=== PATIENT | male | born 1960 | race Caucasian/White ===

== ENCOUNTER 2017-01-26 23:00 | Observation (INO) | payer BC ==
[~2017-01-26] VITALS: Ht 177.8 cm; Wt 104.1 kg
[2017-01-26] MEDS ORDERED: LISINOPRIL2.5 MG PO (23:29)
[2017-01-26] MEDS ORDERED: METFORMIN HCL500 MG PO (23:29)
[2017-01-26] MEDS ORDERED: DIABETA5 MG PO (23:30)
[2017-01-26 23:41] LABS: CARBON DIOXIDE (BICARBONATE) 30.2 MEQ/L (20-31)
[2017-01-26 23:44] LABS: EOSINOPHIL (%) 0.5 % (0-5); EOSINOPHIL COUNT 0.1 K/uL (0-0.3); IMMATURE GRANULOCYTE (%) 0.3 % (0.0-0.7); LYMPHOCYTE COUNT 0.6 K/uL (1.0-2.8); MCH 27.3 PG (29.0-34.0); MCV 82.5 FL (86-99); MEAN PLAT.VOLUME 9.8 uM^3 (9.0-12.4); MONOCYTE (%) 6.4 % (3-12); MONOCYTE COUNT 0.7 K/uL (0-0.8); NEUTROPHIL (%) 86.8 % (45-76); PLATELET COUNT 150 K/uL (156-360); RBC DIS.WIDTH-CV 12.3 % (11.8-14.6); RBC DIS.WIDTH-SD 37.2 % (39-53); RED BLOOD COUNT 5.21 M/uL (4.00-5.50); WHITE BLOOD COUNT 10.3 K/uL (4.1-10.2)
[2017-01-26 23:48] LABS: INTER. NORMALIZED RATIO 1.1; PROTHROMBIN TIME 11.9 SEC (10.2-12.9)
[2017-01-26 23:49] LABS: CHLORIDE 103 mEq/L (99-109); POTASSIUM 4.1 mEq/L (3.7-5.4); SODIUM 140 mEq/L (136-147)
[2017-01-26 23:51] LABS: GLUCOSE 291 mg/dL (70-99); PTT 28.5 SEC (25-37)
[2017-01-26 23:53] LABS: ANION GAP 14 MEQ/L (2-14); TOTAL BILIRUBIN 2.2 mg/dL (0.0-1.0)
[2017-01-26 23:55] LABS: ALKALINE PHOSPHATASE 111 IU/L (3-129); GFR ESTIMATE (CALCULATED) > 59 mL/min/
[2017-01-26 23:56] LABS: UREA NITROGEN (BUN) 20 mg/dL (9-23)
[2017-01-26 23:57] LABS: DIRECT BILIRUBIN 1.4 mg/dL (0.0-0.3)
[2017-01-26 23:58] LABS: LIPASE 60 U/L (1.0-51.0)
[2017-01-27 00:01] LABS: TROP-I INTERPRETATION NEGATIVE; TROPONIN-I < 0.01 ng/mL (0.0-0.30)
[2017-01-27 06:47] LABS: POINT-OF-CARE METER ID UU13113702
[2017-01-27] MEDS ORDERED: CINNAMON500 MG PO (09:20)
[2017-01-27 11:32] LABS: POINT-OF-CARE METER ID UU13113702
[2017-01-27 11:38] LABS: HEMATOCRIT 40.8 % (38.0-50.0); MCH 27.4 PG (29.0-34.0); MCHC 33.6 G/DL (30.0-36.0); MCV 81.6 FL (86-99); MEAN PLAT.VOLUME 9.7 uM^3 (9.0-12.4); PLATELET COUNT 142 K/uL (156-360); RBC DIS.WIDTH-CV 12.5 % (11.8-14.6); WHITE BLOOD COUNT 6.4 K/uL (4.1-10.2)
[2017-01-27 11:52] LABS: CHLORIDE 106 mEq/L (99-109); POTASSIUM 3.9 mEq/L (3.7-5.4); SODIUM 139 mEq/L (136-147)
[2017-01-27 11:53] LABS: AMYLASE 98 IU/L (1-118)
[2017-01-27 11:54] LABS: GLUCOSE 209 mg/dL (70-99)
[2017-01-27 11:56] LABS: ANION GAP 12 MEQ/L (2-14)
[2017-01-27 11:58] LABS: ALKALINE PHOSPHATASE 122 IU/L (3-129); GFR ESTIMATE (CALCULATED) > 59 mL/min/; TOTAL BILIRUBIN 3.7 mg/dL (0.0-1.0)
[2017-01-27 11:59] LABS: UREA NITROGEN (BUN) 14 mg/dL (9-23)
[2017-01-27 12:02] LABS: LIPASE 308 U/L (1.0-51.0)
[2017-01-27 16:10] VITALS: BP 160/72
[2017-01-27 17:37] LABS: POINT-OF-CARE METER ID UU13113831
[2017-01-27 19:59] VITALS: BP 136/69
[2017-01-27 23:00] VITALS: BP 126/61
[2017-01-27 23:56] VITALS: BP 127/73
[2017-01-28 00:47] LABS: POINT-OF-CARE METER ID UU13113831
[2017-01-28 04:00] VITALS: BP 128/70
[2017-01-28 06:47] LABS: ALKALINE PHOSPHATASE 125 IU/L (3-129); ANION GAP 11 MEQ/L (2-14); CHLORIDE 105 MEQ/L (99-109); GFR ESTIMATE (CALCULATED) > 59 mL/min/; GLUCOSE 125 mg/dL (70-99); LIPASE 85 U/L (1.0-51.0); POTASSIUM 3.8 MEQ/L (3.7-5.4); SAMPLE HEMOLYSIS CHECK 0; SAMPLE ICTERIC CHECK 1; SAMPLE LIPEMIA CHECK 0; SODIUM 139 MEQ/L (136-147); TOTAL BILIRUBIN 3.4 MG/DL (0.0-1.0); TRIGLYCERIDES 115 MG/DL (Normal: <150); UREA NITROGEN (BUN) 12 mg/dL (9-23)
[2017-01-28 09:21] VITALS: BP 129/66
[2017-01-28 11:01] LABS: AHBS INDEX 0.31; HBSG INDEX 0.14; HEPATITIS B SURFACE ANTIBODY Nonreactive; HPCA INDEX 0.51
[2017-01-28 11:03] VITALS: BP 126/65
[2017-01-28 11:03] LABS: ANTI-HEPATITIS A VIRUS (IGM) Nonreactive; ANTI-HEPATITIS B CORE (IGM) Nonreactive; HAV INDEX 0.12; HBC IgM INDEX 0.08
[2017-01-28 12:14] LABS: POINT-OF-CARE METER ID UU13113700
[2017-01-28 15:38] VITALS: BP 130/69
[2017-01-28 18:49] LABS: POINT-OF-CARE METER ID UU13113831
[2017-01-28 20:23] VITALS: BP 131/70
[2017-01-28 23:10] VITALS: BP 130/71
[2017-01-29 00:07] LABS: POINT-OF-CARE METER ID UU13113831
[2017-01-29 03:29] VITALS: BP 131/73
[2017-01-29 05:20] LABS: HEMATOCRIT 39.1 % (38.0-50.0); MCH 27.3 PG (29.0-34.0); MCHC 32.5 G/DL (30.0-36.0); MCV 83.9 FL (86-99); MEAN PLAT.VOLUME 9.5 uM^3 (9.0-12.4); PLATELET COUNT 124 K/uL (156-360); RBC DIS.WIDTH-CV 12.9 % (11.8-14.6); RBC DIS.WIDTH-SD 39.6 % (39-53); RED BLOOD COUNT 4.66 M/uL (4.00-5.50); WHITE BLOOD COUNT 4.8 K/uL (4.1-10.2)
[2017-01-29 06:06] LABS: ALKALINE PHOSPHATASE 96 IU/L (3-129); ANION GAP 9 MEQ/L (2-14); CHLORIDE 105 MEQ/L (99-109); GFR ESTIMATE (CALCULATED) > 59 mL/min/; GLUCOSE 106 mg/dL (70-99); POTASSIUM 3.7 MEQ/L (3.7-5.4); SAMPLE HEMOLYSIS CHECK 0; SAMPLE ICTERIC CHECK 0; SAMPLE LIPEMIA CHECK 0; SODIUM 137 MEQ/L (136-147); UREA NITROGEN (BUN) 9 mg/dL (9-23)
[2017-01-29 06:07] LABS: TOTAL BILIRUBIN 1.8 MG/DL (0.0-1.0)
[2017-01-29 06:12] LABS: ALKALINE PHOSPHATASE 97 IU/L (3-129); DIRECT BILIRUBIN 0.7 mg/dL (0.0-0.3); GLOBULINS 2.6 G/DL (2.3-3.5); LIPASE 29 U/L (1.0-51.0); TOTAL BILIRUBIN 1.8 MG/DL (0.0-1.0)
[2017-01-29 06:38] LABS: POINT-OF-CARE METER ID UU14162513
[2017-01-29 09:32] LABS: FERRITIN 177 NG/ML (22-322)
[2017-01-29 09:52] VITALS: BP 135/68
[2017-01-29 11:09] VITALS: BP 144/80
[2017-01-29 12:12] LABS: POINT-OF-CARE METER ID UU14162513
[2017-01-29 15:23] VITALS: BP 142/73
[2017-01-29] MEDS ORDERED: AUGMENTIN875 MG PO (18:50)
== END 2017-01-29 19:56 | disposition home or self-care (01) ==
LOC: EME 23:00 → EDOF 01-27 03:35 → 5WEST 01-27 03:35 → EDOF 01-27 03:35 → ENRESERV 01-27 03:36 → 5WEST 01-27 15:46
PROVIDERS: Emergency Medicine; Internal Medicine; Specialist; Surgery
DX: K85.90 Acute pancreatitis without necrosis or infection, unspecified (principal); K80.20 Calculus of gallbladder without cholecystitis without obstruction; R50.9 Fever, unspecified; R74.8 Abnormal levels of other serum enzymes; K21.9 Gastro-esophageal reflux disease without esophagitis; I10 Essential (primary) hypertension; E11.9 Type 2 diabetes mellitus without complications; E78.5 Hyperlipidemia, unspecified; E66.9 Obesity, unspecified; Z86.19 Personal history of other infectious and parasitic diseases; F17.210 Nicotine dependence, cigarettes, uncomplicated; Z83.79 Family history of other diseases of the digestive system; Z80.0 Family history of malignant neoplasm of digestive organs; Z79.84 Long term (current) use of oral hypoglycemic drugs
CPT/HCPCS: 70140; 71020; 74177; 74183; 76705; 80048; 80053; 80076; 82150; 82390; 82728; 82803; 82948; 83605; 83690; 83880; 84165; 84466; 84478; 84484; 85025; 85027; 85610; 85730; 86038; 86705; 86706; 86709; 86803; 87340; 93005; 99281; 99285; C9113; G0378; J1650; J1815; J7030

== ENCOUNTER 2017-02-08 09:43 | Day surgery (SDC) | payer BC ==
[~2017-02-08] VITALS: Ht 177.8 cm; Wt 102.6 kg
[~2017-02-08 09:43] MED LIST: AUGMENTIN875 MG PO; CINNAMON500 MG PO; DIABETA5 MG PO; LISINOPRIL2.5 MG PO; METFORMIN HCL500 MG PO
[2017-02-08 10:18] VITALS: BP 172/79
[2017-02-08 10:18] LABS: POINT-OF-CARE METER ID UU14174212
[2017-02-08] MEDS ORDERED: NORCO 5/3251 TABLET PO (13:15)
[2017-02-08 13:31] LABS: POINT-OF-CARE METER ID UU13113675; POINT-OF-CARE USER ID ADMKMM76
[2017-02-08 14:35] VITALS: BP 179/86
[2017-02-08 15:36] VITALS: BP 161/74
[2017-02-08 17:06] VITALS: BP 146/70
== END 2017-02-08 16:50 | disposition home or self-care (01) ==
LOC: SDC 09:43
PROVIDERS: Surgery
PROC: 0FT44ZZ Resection of Gallbladder, Percutaneous Endoscopic Approach (ICD-10-PCS; principal; 2017-02-08)
DX: K80.10 Calculus of gallbladder with chronic cholecystitis without obstruction (principal); K74.60 Unspecified cirrhosis of liver; E11.9 Type 2 diabetes mellitus without complications; I10 Essential (primary) hypertension; F17.200 Nicotine dependence, unspecified, uncomplicated
CPT/HCPCS: 82948; 88304; J1100; J1170; J1885; J2250; J2405; J2710; J3010